=== PATIENT | female | born 1970 | race Hispanic/Latino ===

== ENCOUNTER 2018-11-29 18:47 | Emergency (ER) | payer SELFPAY ==
[~2018-11-29] VITALS: Ht 144.8 cm; Wt 49.4 kg
--- OUTSIDE RECORDS SUMMARY | 2018-11-29 18:50 | XMS REPORT ---
Author Author [facility] Address Unknown Phone Unavailable Care Team Providers Care Echocardiographer Name Role Phone Unavailable Unavailable Problems This patient has no known problems. Allergies, Adverse Reactions, Alerts This patient has no known allergies or adverse reactions. Medications This patient has no known medications. Encounters Start Date/Time End Date/Time Encounter Type Admission Type Attending Clinicians Care Facility Care Department Encounter ID 2018-11-21 15:06:19 2018-11-21 15:06:19 Emergency [facility] [id number]
--- OUTSIDE RECORDS SUMMARY | 2018-11-29 18:50 | XMS REPORT | Clinical Summary ---
Author Author [facility] Organization [facility] Address Unknown Phone Unavailable Care Team Providers Care Configuration Release Manager Name Role Phone PCP Unavailable Allergies Not on File Medications End Date Status Medication Sig Dispensed Refills Start Date 12/21/2018 Active ferrous sulfate 134 mg Take by 30 tablet 3 (27 mg iron) mouth. 9 TabIndications: Anemia, unspecified type Active Problems Not on file Encounters Care Team Description Date Type Specialty Jin Garrison MD Anemia, unspecified type (Primary Dx); Menorrhagia with regular cycle 11/21/2018 Emergency Emergency Medicine 11/21/2018 Travel after 11/28/2017 Social History Date Tobacco Use Types Packs/Day Years Used Never Assessed Sex Assigned at Date Recorded Not on file Industry Job Start Date Occupation Not on file Not on file Not on file Travel End Travel History Travel Start No recent travel history available. Last Filed Vital Signs Time Taken Vital Sign Reading 11/21/2018 10:49 PM [facility]YS[facility] Blood Pressure 116/75 11/21/2018 10:49 PM [facility]CTIONAL MEDICINE PHYSICIAN Pulse 59 11/21/2018 10:49 PM [facility]RECTIONAL MEDICINE PHYSICIAN Temperature 36.9 C (98.4 F) 11/21/2018 10:49 PM [facility]CTIONAL MEDICINE PHYSICIAN Respiratory Rate 18 11/21/2018 10:35 PM CORRECTIONAL MEDICINE PHYSICIAN Oxygen Saturation 99% - Inhaled Oxygen - Concentration 11/21/2018 2:52 PM CORRECTIONAL MEDICINE PHYSICIAN Weight 86.2 kg (190 lb) - Height - - Body Mass Index - Plan of Treatment Health Maintenance Due Date Last Done Comments Cervical Cancer Scrn (3 01/15/1993 Yrs) Breast Cancer Scrn 2012 (Yearly) IMM Influenza Seasonal 07/27/2018 Oct to December (>/=19 yrs) Procedures Comments Procedure Name Priority Date/Time Associated Diagnosis VBG POC Routine 11/21/2018 3:18 PM CORRECTIONAL MEDICINE PHYSICIAN BMP POC Routine 11/21/2018 3:17 PM CORRECTIONAL MEDICINE PHYSICIAN 12 LEAD EKG Routine 11/21/2018 3:13 PM CORRECTIONAL MEDICINE PHYSICIAN TYPE AND SCREEN STAT 11/21/2018 3:11 PM CORRECTIONAL MEDICINE PHYSICIAN HIV-1/HIV-2 ROUTINE STAT 11/21/2018 SCREENING 2:15 PM CORRECTIONAL MEDICINE PHYSICIAN CBC/DIFF STAT 11/21/2018 2:15 PM CORRECTIONAL MEDICINE PHYSICIAN after 11/28/2017 Results * VBG POC (11/21/2018 3:18 PM CORRECTIONAL MEDICINE PHYSICIAN) pH, Rigoberto POC 7.36Comment: Physician 7.33 - 7.43 [facility] Not[facility] MA[facility] 1 pCO2, Rigoberto POC 35.1 (L) 38.0 - 50.0 mm Hg [facility] 1 pO2, Rigoberto POC 56 50 - 75 mm Hg LB [facility] 1 Base Deficit, 5 [facility] Rigoberto POC [facility] 1 HCO3, Rigoberto POC 19.8 (L) 22.0 - 26.0 mmol/L [facility]ST[facility] 1 % Sat, Rigoberto POC 88 (H) 60 - 85 % [facility]IN[facility]ST[facility] 1 Lactic Acid, 1.69 0.4 - 2.0 mmol/L [facility] Rigoberto POC MAIN-STATION 1 Sample Type Rigoberto [facility] MAIN-[facility] 1 TCO2, RIGOBERTO POC 21 21 - 32 mmol/L [facility] MAIN-ST[facility] 1 Performing Organization Address City/State/Zipcode Phone Number [place] [facility] MAIN-STATION 1 * BMP POC (11/21/2018 3:17 PM CORRECTIONAL MEDICINE PHYSICIAN) CO2 POC 22Comment: Physician Notified 21 - 32 mmol/L [facility]IN-STATION 1 Chloride POC 106 98 - 107 mmol/L [facility]IN[facility] 1 Potassium POC 3.9 3.50 - 5.10 mmol/L [facility] MA[facility] 1 Sodium POC 139 136 - 145 mmol/L [facility] 1 Glucose POC 86 74 - 106 mg/dL [facility] 1 Urea Nitrogen 9 7 - 18 mg/dL [facility] POC [facility] 1 Creatinine POC 0.6 0.6 - 1.3 mg/dL [facility] 1 Calcium Ionized 1.23 1.15 - 1.29 mmol/L [facility] POC [facility] 1 Hemoglobin POC 7.8 (L) 12.0 - 16.0 g/dL [facility] MA[facility] 1 Hematocrit POC 23.0 (L) 37.0 - 47.0 % [facility] MA[facility] 1 GFR, Estimated >60 mL/min/1.73 m2 [facility]IN[facility] 1 GFR, Estim, >60 mL/min/1.73 m2 [facility] Afr-Am MAIN-STATION 1 Performing Organization Address City/[facility]/Zipcode Phone Number [place] [facility] MAIN-ST[facility] 1 * 12 LEAD EKG (11/21/2018 3:13 PM CORRECTIONAL MEDICINE PHYSICIAN) 12 LEAD EKG FOR [facility] [place] [facility]:2018-11-21 Pat Name: LORI RUSHING Department: [id number] Room: Gender: F Ingredient Handler: [id number] :[id number] 01-15 Requested By: JIN Carpenter Order Number: [id number] Reading MD: Carmita Hui Measurements Intervals [place] Rate: 75 P:58 HI: 151 QRS: 55 QRSD: 113 T: 40 QT: 407 QTc:457 Interpretive Statements SINUS RHYTHM MODERATE INTRAVENTRICULAR CONDUCTION DELAY Abnormal ECG Electronically Signed On 11-23-2018 12:18:02 CORRECTIONAL MEDICINE PHYSICIAN by Carmita Hui Performing Organization Address City/[facility] Phone Number [facility] * TYPE AND SCREEN (11/21/2018 3:11 PM CORRECTIONAL MEDICINE PHYSICIAN) ABO/RH O Positive [facility] Antibody Screen Negative [facility] Sample 11/24/2018 [facility] Expiration Unit Number [id number] [facility] Blood Component Leuko Reduced Red Cells [facility] UNIT DIVISION 0 [facility] Status of Unit Issued,final [facility] Transfusion OK to transfuse [facility] Status Crossmatch Compatible [facility] Result Unit Number [id number] [facility] Blood Component Leuko-poor red cells [facility] UNIT DIVISION 0 [facility] Status of Unit Issued,final [facility] Transfusion OK to transfuse [facility] Status Crossmatch Compatible [facility] Result Specimen Blood bag - BLOOD Performing Organization Address City/State/Zipcode Phone Number [place] [facility] * HIV-1/HIV-2 ROUTINE SCREENING (11/21/2018 2:15 PM CORRECTIONAL MEDICINE PHYSICIAN) HIV-1/HIV-2 Negative NEG [facility] Performing Organization Address City/State/Zipcode Phone Number [place] [facility] * CBC/DIFF (11/21/2018 2:15 PM CORRECTIONAL MEDICINE PHYSICIAN) WBC 7.2 4.5 - 11.0 K/uL [facility] 2 RBC 3.99 (L) 4.20 - 5.40 M/uL [facility] 2 Hemoglobin 5.1 (LL) 12.0 - 16.0 g/dL [facility] 2 Hematocrit 21.7 (L) 37.0 - 47.0 % [facility] 2 MCV 54 (L) 82 - 92 fL [facility] 2 MCH 12.8 (L) 27.0 - 32.0 pg [facility] 2 MCHC 23.5 (L) 32.0 - 36.0 g/dL [facility] 2 RDW 40.7 36.4 - 46.3 fL [facility] 2 Platelet 522 (H) 150 - 400 K/uL [facility] 2 Mean Platelet 9.7 9.4 - 12.4 fL [facility] Volume [facility] 2 Percent NRBC 0.0 [facility] 2 Absolute NRBC 0.00 [facility] 2 Neutrophil 66.0 34.0 - 70.0 % [facility] 2 Lymphocyte 22.0 20.0 - 50.0 % [facility] 2 Monocyte 8.0 5.0 - 12.0 % [facility] 2 Eosinophil 1.0 0.7 - 5.0 % [facility] 2 Basophil 1.0 0.1 - 1.2 % [facility] 2 Neutrophil, Abs 4.75 1.56 - 6.13 K/uL [facility] 2 Lymphocyte, Abs 1.58 1.18 - 3.74 K/uL [facility] 2 Monocyte, Abs 0.58 (H) 0.24 - 0.36 K/uL [facility] 2 Eosinophil, Abs 0.07 0.04 - 0.36 K/uL [facility] 2 Basophil, Abs 0.07 0.01 - 0.08 K/uL [facility] 2 Atypical Lymph 2 % [facility] 2 Hypochromia 3+ [facility] 2 Schistocyte 1+ [facility] 2 Platelet Clumps Present [facility] 2 Specimen Blood Performing Organization Address City/State/Zipcode Phone Number [place] [facility] 2 after 11/28/2017 Insurance Type Payer Benefit Subscriber ID Effective Phone Address Plan / Dates Group [employer] SELF-PAY HC xxxxxxxxx 2018- [phone] [id number] [place] [address]
[2018-11-29 20:13] LABS: BASOPHILS # (AUTO) 0.1 (0.0-0.1); BASOPHILS % 0.9 % (0.0-1.0); EOSINOPHILS # (AUTO) 0.1 (0.0-0.4); EOSINOPHILS % 1.1 % (0.0-6.0); HEMATOCRIT 29.3 % (34.2-44.1); LYMPHOCYTES % 18.2 % (18.0-39.1); MEAN CORPUSCULAR HEMOGLOBIN 17.3 pg (28-32); MEAN CORPUSCULAR HGB CONC 27.3 g/dL (31-35); MEAN CORPUSCULAR VOLUME 63.3 fL (81-99); MONOCYTES # (AUTO) 0.7 (0.2-0.8); MONOCYTES % 13.5 % (4.4-11.3); NEUTROPHILS # (AUTO) 3.5 (2.1-6.9); NEUTROPHILS % 65.9 % (38.7-80.0); PLATELET COUNT 427 x10e3/uL (140-360); RED BLOOD COUNT 4.63 x10e6/uL (3.6-5.1); RED CELL DISTRIBUTION WIDTH 34.3 % (11.7-14.4)
[2018-11-29 20:16] LABS: PREGNANCY TEST, URINE NEGATIVE (NEGATIVE)
[2018-11-29 20:19] LABS: INR 1.04; PROTHROMBIN TIME 14.5 seconds (11.9-14.5)
[2018-11-29 20:20] LABS: PARTIAL THROMBOPLASTIN TIME 24.9 seconds (23.8-35.5)
[2018-11-29 20:29] LABS: ALANINE AMINOTRANSFERASE 21 IU/L (0-55); ALBUMIN 3.8 g/dL (3.5-5.0); ALBUMIN/GLOBULIN RATIO 1.1 (0.8-2.0); ALKALINE PHOSPHATASE 66 IU/L (40-150); ANION GAP 14.6 mmol/L (8-16); BLOOD UREA NITROGEN 10 mg/dL (7-26); BUN/CREATININE RATIO 17 (6-25); CARBON DIOXIDE 22 mmol/L (22-29); CHLORIDE 104 mmol/L (98-107); EST GLOMERULAR FILTRATION RATE > 60 ML/MIN (60-); GLUCOSE 97 mg/dL (74-118); POTASSIUM 3.6 mmol/L (3.5-5.1); SODIUM 137 mmol/L (136-145)
[2018-11-29 20:48] LABS: BILIRUBIN,URINE NEGATIVE (NEGATIVE); KETONES,URINE TRACE (NEGATIVE); LEUKOCYTE ESTERASE ,URINE NEGATIVE (NEGATIVE); NITRITE,URINE NEGATIVE (NEGATIVE); PROTEIN,URINE DIPSTICK TRACE (NEGATIVE); URINE UROBILINOGEN 0.2 mg/dL (0.2 - 1)
[2018-11-29 21:14] LABS: BACTERIA,URINE MODERATE /HPF; CLARITY,URINE HAZY (CLEAR); COLOR,URINE YELLOW (YELLOW); EPITHELIAL CELLS,URINE MANY /LPF; RBC,URINE 0-5 /HPF (0-5)
[2018-11-29 22:02] LABS: ANISOCYTOSIS MARKED; HYPOCHROMASIA MARKED; MICROCYTOSIS MODERATE; PLATELET ESTIMATE ADEQUATE; POIKILOCYTOSIS MARKED
[2018-11-29 22:03] LABS: LARGE PLATELETS FEW; RBC MORPHOLOGY COMMENT ABNORMAL
[2018-11-29 22:33] VITALS: BP 115/75
== END 2018-11-29 22:44 | disposition home or self-care (01) ==
LOC: ER 18:47
DX: R07.89 Other chest pain (principal); R00.2 Palpitations; R42 Dizziness and giddiness; D50.0 Iron deficiency anemia secondary to blood loss (chronic)
CPT/HCPCS: 36415; 80053; 81001; 81025; 85025; 85610; 85730; 86850; 86900; 87086; 93005; 99284